=== PATIENT | male | born 1985 | race Hispanic/Latino ===

== ENCOUNTER 2016-09-27 12:33 | Emergency (ER) | payer BC ==
[~2016-09-27] VITALS: Ht 175.3 cm; Wt 97.5 kg
[2016-09-27] MEDS ORDERED: CEPH500C (13:05)
[2016-09-27] MEDS ORDERED: HYDR-3816 (13:05)
[2016-09-27] MEDS ORDERED: AZIT250T5 (13:05)
--- NOTE | 2016-09-27 13:25 | ED General ---
General Chief Complaint: Catheter/Drain/Tube Problems Stated Complaint: DRAIN REMOVAL Nursing Triage Note: AMB TO ROOM HAD VASECTOMY DONE IN BOCK YESTERDAY BY DR DAVIS ALSO HAD AREA ON CONCERN BIOSPY. DANICA DRAIN PLACED AFTER. HERE TODAY TO HAVE IT REMOVED. Nursing Sepsis Screen: No Definite Risk Source of Information: Patient, Spouse Exam Limitations: No Limitations History of Present Illness Time Seen by Provider: 13:25 Initial Comments Patient presents to the emergency department with complaints of needing [place] drain removed. [place] drain was placed on 09/26/[address] Davis after vasectomy. Patient was given an order to come to the emergency department for drain removal today. Patient denies any redness, fever, purulent drainage. Small amount of serosanguineous drainage. Timing/Duration: 1 Day Modifying Factors: worse with Other (tender with palpation) Allergies and Home Medications Allergies Coded Allergies: No Known Drug Allergies (Unverified , 09/27/16) Home Medications Azithromycin 250 Mg Tablet #6 (Reported) Cephalexin 500 Mg Capsule #10 (Reported) Hydrocodone/Acetaminophen 1 Each Tablet #30 (Reported) Constitutional: No chills, No fever, No malaise Respiratory: no symptoms reported Cardiovascular: no symptoms reported Gastrointestinal: no symptoms reported Genitourinary: see HPINo dysuria, No frequency, No hematuria, pain ( postsurgical pain.) Skin: see HPINo change in color Psychiatric/Neurological: No Symptoms Reported All Other Systems Reviewed Negative Unless Noted: Yes (Negative excepted noted.) Past Gqzpzou-Fciuft-[place] Hx Patient Social History Alcohol Use: Denies Use Recreational Drug Use: No Smoking Status: Never a Smoker Recent Foreign Travel: No Contact w/Someone Who Travel: No Recent Infectious Disease Expo: No Recent Hopitalizations: No Physical Abuse Screen: No Sexual Abuse: No Seasonal Allergies Seasonal Allergies: No Surgeries HX Surgeries: Yes Surgeries: Vasectomy Respiratory Hx Respiratory Disorders: No Cardiovascular Hx Cardiac Disorders: No Neurological Hx Neurological Disorders: No Reproductive System Hx Reproductive Disorders: No Sexually Transmitted Disease: No Gastrointestinal Hx Gastrointestinal Disorders: No Musculoskeletal Hx Musculoskeletal Disorders: No Cancer Hx Cancer: No Psychosocial Hx Psychiatric Problems: No Reviewed Nursing Assessment Reviewed/Agree w Nursing PMH: Yes Family Medical History Significant Family History: No Pertinent Family Hx Physical Exam Vital Signs Vital Sign - Last 12Hours 09/27/16 13:00 Temp 98.3 Pulse 80 Resp 18 B/P 132/82 Pulse Ox 96 O2 Delivery Room Air Capillary Refill : Less Than 3 Seconds General Appearance: No Apparent Distress WD/WN Genital/Rectal: Other (rt scrotal danica drain with minimal bloody drainage. vicryl suture x1 and danica drain removed in their entirety. Wound covered with 4 x 4 gauze. ) Neurologic/Psychiatric: Alert Oriented x3 Normal Mood/Affect Skin: Normal Color Warm/Dry Other (rt scrotal danica drain with minimal bloody drainage. vicryl suture x1 and danica drain removed in their entirety. Wound covered with 4 x 4 gauze. ) Progress/Results/Core Measures Results/Orders Vital Signs/I&O Vital Sign - Last 12Hours 09/27/16 13:00 Temp 98.3 Pulse 80 Resp 18 B/P 132/82 Pulse Ox 96 O2 Delivery Room Air Blood Pressure Mean: 99 Departure Communication Progress Notes Patient seen and evaluated with [place] drain removed. Plan for discharge to home. Impression Impression: Primary Impression: Encounter for change or removal of drains Disposition: 01 HOME, SELF-CARE Condition: Improved Departure-Patient Inst. Decision time for Depature: 13:38 Referrals: NO,LOCAL PHYSICIAN (PCP) Primary Care Physician WHITNEY DAVIS MD Patient Instructions: Wound Care (DC) Add. Discharge Instructions: All discharge instructions reviewed with patient and/or family. Voiced understanding. Continue all current medications and orders as instructed by Dr. Davis. Shower with antibacterial soap. Follow-up with Dr. Davis October 10 as previously scheduled. Return to the emergency department immediately for worsened pain, redness, fever, drainage, or any other concerns. ELVIS AWAN Sep 27, 2016 13:25
[2016-09-27 14:19] VITALS: BP 132/82
== END 2016-09-27 14:19 | disposition home or self-care (01) ==
LOC: EDUNIT# 12:33 → ER 12:34
DX: Z48.03 Encounter for change or removal of drains (principal); Z98.890 Other specified postprocedural states
CPT/HCPCS: 99281